=== PATIENT | female | born 1970 | race African-American/Black ===

== ENCOUNTER 2017-01-29 10:38 | Emergency (ER) | payer MEDICAID, OTHER ==
[~2017-01-29] VITALS: Ht 170.2 cm; Wt 77.0 kg
[2017-01-29 11:40] LABS: CLARITY URINE CLEAR (CLEAR); COLOR URINE YELLOW (YELLOW); GLUCOSE URINE NEGATIVE (NEGATIVE); KETONES URINE NEGATIVE (NEGATIVE); LEUKOCYTE ESTERASE URINE NEGATIVE (NEGATIVE); NITRITE URINE NEGATIVE (NEGATIVE); OCCULT BLOOD URINE 3+ (NEGATIVE); PH URINE 6.5 (4.5-8.0); PROTEIN URINE NEGATIVE (NEGATIVE); SPECIFIC GRAVITY URINE 1.016 (1.005-1.030); UROBILINOGEN URINE 0.2 E.U./dL (0.2-1.0)
[2017-01-29 11:43] LABS: BACTERIA URINE NONE SEEN; CALCIUM PHOSPHATE CRYSTALS UR NONE SEEN /lpf; SQUAMOUS EPITHELIAL CELL URINE 1+ /lpf (RARE/1+); WAXY CASTS URINE NONE SEEN /lpf; WBC URINE 0-2 /hpf (0-2); YEAST URINE NONE SEEN
[2017-01-29 11:47] LABS: EOSINOPHILS % 5.4 % (0.0-5.0); HEMATOCRIT. 34.5 % (36.0-48.0); HEMOGLOBIN. 11.3 g/dL (12.0-16.0); LYMPHOCYTES % 37.7 % (20.0-50.0); MEAN CORPUSCULAR HEMOGLOBIN 26.7 pg (28.0-32.0); MEAN CORPUSCULAR HGB CONC 32.8 g/dL (31.0-37.0); MEAN CORPUSCULAR VOLUME 81.3 fL (81.0-99.0); MEAN PLATELET VOLUME 8.2 fl (7.4-10.4); MONOCYTES % 8.3 % (2.0-8.0); NEUTROPHILS % 47.6 % (40.0-76.0); PLATELET 209 x1000/uL (130-400); RED BLOOD CELL COUNT 4.24 mill/uL (4.2-5.4); RED CELL DISTRIBUTION WIDTH 14.9 % (11.6-14.6); WHITE BLOOD COUNT 4.6 x1000/uL (4.5-11.0)
[2017-01-29 11:52] LABS: CHLORIDE 104 mEq/L (98-107); INDEX HEMOLYSI 1 (1-3); INDEX ICTERIC 1 (1-4); INDEX LIPEMIC 1 (1-3)
[2017-01-29 11:59] LABS: ALANINE AMINOTRANSFERASE 14 IU/L (13-61); ALBUMIN 3.4 g/dL (3.4-5.0); ANION GAP 11; CALCIUM 9.5 mg/dL (8.5-10.1); CARBON DIOXIDE 29 mEq/L (21-32); UREA NITROGEN BLOOD 11 mg/dL (7-21); eGFR > 60 mL/min (>60)
[2017-01-29] MEDS ORDERED: IBUPROFEN 600MG TABLET PO ONE (13:15)
[2017-01-29 15:10] VITALS: BP 124/85
== END 2017-01-29 15:12 | disposition home or self-care (01) ==
LOC: ER 11:16
DX: N83.292 Other ovarian cyst, left side (principal); I10 Essential (primary) hypertension; R07.9 Chest pain, unspecified
CPT/HCPCS: 36415; 76830; 76856; 80053; 81001; 81025; 85025; 93005; 99285; Z7610

== ENCOUNTER 2019-01-26 16:55 | Inpatient (IN) | payer MEDICAID, OTHER ==
[~2019-01-26] VITALS: Ht 170.2 cm; Wt 73.9 kg
[2019-01-26] MEDS ORDERED: ATEN-42 PO (17:06)
[2019-01-26] MEDS ORDERED: ASPIRIN 81MG TABLET PO ONE (18:30)
[2019-01-26] MEDS ORDERED: CLONIDINE 0.2MG TABLET PO ONE (18:30)
[2019-01-26 19:08] LABS: BASOPHILS % 0.4 % (0.0-2.0); EOSINOPHILS % 6.5 % (0.0-5.0); HEMATOCRIT. 37.6 % (36.0-48.0); HEMOGLOBIN. 12.3 g/dL (12.0-16.0); LYMPHOCYTES % 37.3 % (20.0-50.0); MEAN CORPUSCULAR HEMOGLOBIN 27.2 pg (28.0-32.0); MEAN CORPUSCULAR VOLUME 83.3 fL (81.0-99.0); MEAN PLATELET VOLUME 8.4 fl (7.4-10.4); MONOCYTES % 9.6 % (2.0-8.0); NEUTROPHILS % 46.2 % (40.0-76.0); PLATELET 284 x1000/uL (130-400); RED BLOOD CELL COUNT 4.51 mill/uL (4.2-5.4); RED CELL DISTRIBUTION WIDTH 14.8 % (11.6-14.6)
[2019-01-26 19:10] LABS: CHLORIDE 106 mEq/L (98-107)
[2019-01-26 19:15] LABS: ETHANOL BLOOD < 10 mg/dL
[2019-01-26 19:24] LABS: D-DIMER 0.29 mg/L FEU (<0.50); HCG SCREEN NEGATIVE; PARTIAL THROMBOPLASTIN TIME 28.7 sec (23.4-31.0); PROTHROMBIN TIME 10.1 sec (9.6-11.0)
[2019-01-26 19:35] LABS: CLARITY URINE CLOUDY (CLEAR); COLOR URINE YELLOW (YELLOW); KETONES URINE 1+ (NEGATIVE); LEUKOCYTE ESTERASE URINE 1+ (NEGATIVE); NITRITE URINE POSITIVE (NEGATIVE); OCCULT BLOOD URINE 2+ (NEGATIVE); PROTEIN URINE NEGATIVE (NEGATIVE)
[2019-01-26] MEDS ORDERED: ACETAMINOPHEN 325MG TABLET PO ONE (19:45)
[2019-01-26] MEDS ORDERED: ZOLPIDEM TARTRATE 5MG TABLET PO PRN (22:30)
[2019-01-26] MEDS ORDERED: ONDANSETRON HCL 4MG/2ML INJ IV PRN (22:30)
[2019-01-26] MEDS ORDERED: MORPHINE SULFATE 4 MG/ML CPJ (NOT FOR IM USE) IV PRN (22:30)
[2019-01-26] MEDS ORDERED: HYDROCODONE/ACETAMINOPHEN 5/325MG TABLET PO PRN (22:30)
[2019-01-26] MEDS ORDERED: ACETAMINOPHEN 325MG TABLET PO PRN (22:30)
[2019-01-26 23:35] VITALS: BP 129/76
[2019-01-27] VITALS: BP 129/76
[2019-01-27] MEDS: CEFTRIAXONE 1 G PREMIX 50 ML IV SCH (01:43)
[2019-01-27 04:00] VITALS: BP 115/63
[2019-01-27 06:06] LABS: BASOPHILS % 0.4 % (0.0-2.0); EOSINOPHILS % 6.4 % (0.0-5.0); HEMATOCRIT. 34.7 % (36.0-48.0); HEMOGLOBIN. 11.3 g/dL (12.0-16.0); LYMPHOCYTES % 42.1 % (20.0-50.0); MEAN CORPUSCULAR VOLUME 82.8 fL (81.0-99.0); MEAN PLATELET VOLUME 8.5 fl (7.4-10.4); MONOCYTES % 11.8 % (2.0-8.0); NEUTROPHILS % 39.3 % (40.0-76.0); PLATELET 256 x1000/uL (130-400)
[2019-01-27 06:21] LABS: CHLORIDE 110 mEq/L (98-107)
[2019-01-27 07:31] VITALS: BP 146/89
[2019-01-27] MEDS ORDERED: METOPROLOL TARTRATE 25MG TABLET PO SCH (09:00)
[2019-01-27] MEDS: AMLODIPINE 5MG TABLET PO SCH ×2 (09:21→20:55)
[2019-01-27] MEDS: ASPIRIN 81MG TABLET PO SCH (09:22)
[2019-01-27 12:00] VITALS: BP 150/88
[2019-01-27] MEDS ORDERED: REGADENOSON 0.4 MG/5 ML IV NR (15:15)
[2019-01-27 16:00] VITALS: BP 139/84
[2019-01-27 16:52] LABS: T4 FREE 0.93 ng/dL (0.76-1.46)
[2019-01-27 20:00] VITALS: BP 139/89
[2019-01-27] MEDS: METOPROLOL TARTRATE 50MG TABLET PO SCH (20:55)
[2019-01-27] MEDS ORDERED: ATORVASTATIN CALCIUM 40MG TABLET PO SCH (21:00)
[2019-01-27 23:50] LABS: CREATINE KINASE 68 IU/L (26-192)
[2019-01-27 23:51] LABS: CREATINE KINASE MB FRACTION < 1.0 ng/mL (0.5-3.6)
[2019-01-28] VITALS: BP 146/91
[2019-01-28] MEDS: CEFTRIAXONE 1 G PREMIX 50 ML IV SCH (02:58)
[2019-01-28 04:00] VITALS: BP 118/73
[2019-01-28 06:59] LABS: CREATINE KINASE 62 IU/L (26-192)
[2019-01-28 07:01] LABS: CREATINE KINASE MB FRACTION < 1.0 ng/mL (0.5-3.6)
[2019-01-28 07:42] VITALS: BP 127/82
[2019-01-28] MEDS ORDERED: REGADENOSON 0.4 MG/5 ML IV ONE (08:25)
[2019-01-28] MEDS: METOPROLOL TARTRATE 50MG TABLET PO SCH (09:28)
[2019-01-28] MEDS: AMLODIPINE 5MG TABLET PO SCH (09:28)
[2019-01-28] MEDS: ASPIRIN 81MG TABLET PO SCH (09:28)
[2019-01-28 12:00] VITALS: BP 143/89
[2019-01-28] MEDS ORDERED: ASPI-1160 PO (12:13)
[2019-01-28] MEDS ORDERED: LIP40 PO (12:13)
[2019-01-28] MEDS ORDERED: METO-539 PO (12:13)
[2019-01-28] MEDS ORDERED: AMLO5TAB88 PO (12:13)
[2019-01-28 12:32] VITALS: BP 143/89
[2019-01-28 15:04] LABS: CREATINE KINASE 67 IU/L (26-192)
[2019-01-28 15:05] LABS: CREATINE KINASE MB FRACTION < 1.0 ng/mL (0.5-3.6)
== END 2019-01-28 15:13 | disposition home or self-care (01) | DRG 199 ==
LOC: ER 16:55 → 8WST 20:54 → EDBEDREQTM 20:57 → EDBEDREQ 20:57 → ENRESERV 22:32
PROVIDERS: ADMIT Internal Medicine; ATTEND Internal Medicine
DX: I16.0 Hypertensive urgency (principal); I24.8 Other forms of acute ischemic heart disease; E78.5 Hyperlipidemia, unspecified; N39.0 Urinary tract infection, site not specified; I10 Essential (primary) hypertension; Z79.899 Other long term (current) drug therapy
CPT/HCPCS: 36415; 71045; 78452; 80048; 80061; 80320; 82550; 82553; 82962; 83036; 83880; 84439; 84443; 84484; 84703; 85379; 93005; 93017; 93306; 93970; 99285; A9500; J0696; J2785; J7040; G0480

== ENCOUNTER 2024-08-30 09:41 | Emergency (ER) | payer MEDICAID ==
[~2024-08-30] VITALS: Ht 170.2 cm; Wt 80.0 kg
[~2024-08-30 09:41] MED LIST: AMLO5TAB88 PO; ASPI-1160 PO; LIP40 PO; METO-539 PO
[2024-08-30 09:44] VITALS: O2SAT 100
[2024-08-30 11:03] LABS: CHLORIDE 105 mEq/L (98-107); POTASSIUM 3.8 mEq/L (3.5-5.1); SODIUM 141 mEq/L (136-145)
[2024-08-30 11:04] LABS: CALCIUM 10.5 mg/dL (8.7-10.4); CARBON DIOXIDE 29 mEq/L (21-32)
[2024-08-30 11:09] LABS: CREATININE 0.7 mg/dL (0.6-1.0); GLUCOSE 89 mg/dL (70-105); UREA NITROGEN BLOOD 6 mg/dL (9-23)
[2024-08-30 11:13] LABS: TROPONIN I HIGH SENSITIVITY < 4 ng/L (3.0-34)
[2024-08-30 11:35] LABS: BASOPHILS % 0.8 % (0.0-2.0); EOSINOPHILS % 7.2 % (0.0-5.0); HEMOGLOBIN. 11.8 g/dL (12.0-16.0); LYMPHOCYTES % 43.6 % (20.0-50.0); MEAN CORPUSCULAR HEMOGLOBIN 27.1 pg (28.0-32.0); MEAN CORPUSCULAR HGB CONC 32.6 g/dL (31.0-37.0); MEAN CORPUSCULAR VOLUME 83.2 fL (81.0-99.0); MEAN PLATELET VOLUME 8.4 fl (7.4-10.4); MONOCYTES % 6.4 % (2.0-8.0); PLATELET 257 x1000/uL (130-400); RED BLOOD CELL COUNT 4.33 mill/uL (4.2-5.4); RED CELL DISTRIBUTION WIDTH 14.9 % (11.6-14.6); WHITE BLOOD COUNT 4.5 x1000/uL (4.5-11.0)
[2024-08-30] MEDS: PROCHLORPERAZINE 10MG/2ML VIAL IV STA (12:35)
[2024-08-30] MEDS: DIPHENHYDRAMINE 50MG/ML VIAL IV ONE (12:35)
[2024-08-30] MEDS: HYDRALAZINE HCL 10MG TABLET PO NR (12:35)
[2024-08-30 13:27] VITALS: BP 160/97; PULSE 76; RESP 18; TEMP 36.72516; O2SAT 100
== END 2024-08-30 13:28 | disposition home or self-care (01) ==
LOC: ER 09:56
DX: I10 Essential (primary) hypertension (principal); Z79.899 Other long term (current) drug therapy
CPT/HCPCS: 80048; 85025; 84484; 36415; 71045; 70450; 93005; 96374; 96375; 99285; J1200; J0780; A4663; Z7610; A4606